=== PATIENT | male | born 1980 | race Caucasian/White ===

== ENCOUNTER 2024-08-08 15:38 | Emergency (ER) | payer OTHER ==
[~2024-08-08] VITALS: Ht 170.2 cm; Wt 79.3 kg
[2024-08-08 18:12] VITALS: BP 140/93
== END 2024-08-08 18:13 | disposition home or self-care (01) ==
LOC: ED 15:38
DX: S86.112A Strain of other muscle(s) and tendon(s) of posterior muscle group at lower leg level, left leg, initial encounter (principal); X50.1XXA Overexertion from prolonged static or awkward postures, initial encounter; Y93.66 Activity, soccer
CPT/HCPCS: 99283